=== PATIENT | male | born 1995 | race Caucasian/White ===

== ENCOUNTER 2024-01-03 16:49 | Emergency (ER) | payer BC, SELFPAY ==
[2024-01-03 16:52] VITALS: BP 170/95
[2024-01-03 17:10] LABS: % Basophils 0.6 % (0-2); % Eosinophils 1.8 % (0-6); % Immature Granulocytes 0.1 % (0-0.5); % Lymphocytes 35.3 % (20.5-51.1); % Monocytes 7.3 % (1.7-9.3); % Neutrophils 54.9 % (42.2-75.2); Absolute Eosinophils 0.1 10^3/uL (0-0.7); Absolute Lymphocytes 2.4 10^3/uL (1.2-3.4); Absolute Monocytes 0.5 10^3/uL (0.1-0.6); Absolute Neutrophils 3.7 10^3/uL (1.4-6.5); Hematocrit 44.9 % (39.0-52.0); Hemoglobin 15.5 g/dL (13.0-18.0); Mean Corp Hgb Conc. 34.5 g/dL (33.0-37.0); Mean Corpuscular Hgb 28.4 pg (27.0-31.0); Mean Corpuscular Volume 82.2 fL (80.0-94.0); Mean Platelet Volume 10.1 fL (7.4-10.4); Nucleated Red Blood Cells % 0 % (-); Platelet Count 255 10^3/uL (130-400); Red Blood Cell Count 5.46 10^6/uL (4.70-6.10); Red Cell Dist. Width 12.5 % (11.5-14.5); White Blood Cell Count 6.8 10^3/uL (4.8-10.8)
[2024-01-03 17:29] LABS: ALT (SGPT) 35 U/L (0-50); AST (SGOT) 32 U/L (17-59); Albumin 5.2 g/dl (3.5-5.0); Alkaline Phosphatase 62 U/L (38-126); Blood Urea Nitrogen 13 mg/dl (9-20); Calcium 9.9 mg/dl (8.4-10.2); Carbon Dioxide 27 mmol/L (22-30); Chloride 101 mmol/L (98-107); Glucose 113 mg/dl (70-99); Potassium 3.9 mmol/L (3.5-5.1); Sodium 137 mmol/L (135-145); Total Bilirubin 0.5 mg/dl (0.2-1.3); Total Protein 8.4 g/dl (6.3-8.2); eGFR > 60.00
[2024-01-03 17:35] LABS: Troponin I < 0.012 ng/ml
--- NOTE | 2024-01-03 18:20 | ED.GENMED ---
History of Present Illness
General
Chief Complaint: Chest Pain
Source: patient
Exam Limitations: none
Time Seen by Provider: 01/03/24 17:51
Nursing documentation reviewed up to this point in time: agreed with
Travel History
Have you had any contact with someone who has COVID-19?: No
Do you have any symptoms of coronavirus? Fever > 100 degrees, chills, cough, shortness of breath, sore throat, loss of taste or smell, muscle aches, or headache?: No
History of Present Illness
History of Present Illness:
28-year-old male with no chronic medical issues presents to the emergency room for evaluation of chest pain. Patient reports onset of symptoms a few weeks ago�she says that over the past 2 or 3 weeks he has been having pain mostly at nighttime he
describes a sharp left-sided pain. He says that initially he was not having symptoms during the daytime but over the past 3 to 4 days he has noticed intermittent pains during the day as well. He says that since about 3 PM he has had some constant
pain in the left side of his chest and he decided to come to the emergency room for assessment. He denies any exacerbating or relieving factors�no exertional symptoms. He has had some mild associated shortness of breath over the past few days. He
has not had any cough or fever, chills, URI type symptoms. He has not noticed any swelling or pain in his legs. He has not noticed any abdominal pain, nausea, vomiting, diaphoresis. He denies having had similar symptoms in the past. He says he
did have a recent trip to [place] (flew, 2-hour flight, returned home 3 days ago) and was carrying his young child around which could be contributing to his chest pain. He denies any personal history of heart issues; only needs known family
history of heart issues was in his great grandfather. No personal history of DVT/PE. He denies smoking, alcohol, drug use.
Review of Systems
Review of Systems
All Other Systems: ROS reviewed and negative except as documented in HPI and ROS
Constitutional: Reports fatigue; Denies fever or chills
EENT: Denies sore throat or runny nose
Respiratory: Reports trouble breathing; Denies cough
Cardiac: Reports chest pain and palpitations; Denies diaphoresis or syncope
ABD/GI: Denies abdominal pain, nausea, vomiting or diarrhea
: Denies flank pain
Musculoskeletal: Denies edema, neck pain or back pain
Neurological: Denies dizzy, headache, weakness or numbness
Phy Exam
Physical Exam
Physical Exam:
General: Awake, alert, oriented x3; no acute distress
Head: Normocephalic, atraumatic
Eyes: Conjunctiva normal, EOMI, sclera anicteric
Throat: Airway intact, handling secretions
Neck: Trachea midline, supple without meningismus
Lungs: Clear to auscultation bilaterally, no wheezing, rales, rhonchi
Heart: Regular rate and rhythm, no murmurs, gallops, or rubs
Abd: Soft, non distended, nontender
Neuro: Cranial nerves grossly intact, speech fluid
Skin: no rash
Extremities: No edema in extremities, equal pulses in all extremities
Scores
Heart Failure Risk
Heart Failure Risk Score: Not Applicable
Heart Score for Chest Pain Patients
STEMI patient?: No
History: Slightly or Non-Suspicious
ECG: Normal
Age: </= 45 years
Risk Factors: No Risk Factors
Troponin: </= Normal Limit
Heart Score for Chest Pain Patients: 0
Heart Score Risk: 2.5% MACE over next 6 weeks
PE Wells Score
Symptoms of DVT: No
No alternative diagnosis better explains the illness: No
Tachycardia with pulse > 100: No
Immobilization (>=3 days) or surgery within previous 4 weeks: No
Prior history of DVT or pulmonary embolism: No
Presence of hemoptysis: No
Presence of malignancy: No
Pulmonary Embolism Risk Score: 0
Probability of PE: Pt is low risk
Withdrawal Assessment of Alcohol
Withdrawal Assessment Completed?: Not applicable
Course
Orders/Labs/Results
Orders:
Orders
01/03/24 16:54
EKG [Electrocardiogram (*1)] Urgent
Reason for Study: Chest Pain
01/03/24 16:55
EKG- Treatment ONCE
01/03/24 17:02
Complete Blood Count/With Diff Urgent
Comprehensive Metabolic Panel Urgent
Monotest Urgent
Comment: ADD ON
Troponin I Urgent
01/03/24 18:20
CR Chest - 2 Views Urgent
Comment:
Reason For Exam: chest pain
01/03/24 18:23
Add On- LAB Urgent
Tests Added?: monotest
01/03/24 18:42
COVID-19 Antigen Urgent
Source: Nasal Swab
D-Dimer Urgent
Influenza A+B Rapid Molecular Urgent
[facility] Source: Nasal Swab
Specimen Description:
Abnormal Lab Results
01/03/24
17:02
Glucose 113 H mg/dl
(70-99)
Total Protein 8.4 H g/dl
(6.3-8.2)
Albumin 5.2 H g/dl
(3.5-5.0)
01/03/24 17:02
01/03/24 17:02
Vital Signs
Initial and Last Documented VS:
Initial Vital Signs
Temp Pulse Resp BP Pulse Ox
36.9 C 65 18 170/95 100
01/03/24 16:52 01/03/24 16:52 01/03/24 16:52 01/03/24 16:52 01/03/24 16:52
Last Documented Vital Signs
Temp Pulse Resp BP Pulse Ox
36.9 C 65 18 170/95 100
01/03/24 16:52 01/03/24 16:52 01/03/24 16:52 01/03/24 16:52 01/03/24 16:52
MDM/Problems Addressed
Differential Diagnosis Includes:
Pericarditis, costochondritis, pneumothorax, anxiety, GERD; less likely ACS or pulmonary embolism based on history; much less likely aortic dissection based on history and exam
MDM/Problems Addressed:
28-year-old male presents for evaluation of chest pain�mostly at nighttime for the past 2 or 3 weeks over the past few days has been happening during the day he says he has had constant symptoms for the past few hours. No exertional symptoms. EKG
shows no STEMI. Hypertensive but otherwise normal vitals. Physical exam as above. Plan to place an IV check labs including CBC and a CMP, troponin, D-dimer. Check a chest x-ray. Monitor closely reassess after the above.
Initial labs reviewed: CBC unremarkable, CMP no clinically significant abnormalities. Troponin undetectable and with constant symptoms for hours today this is sufficient to rule out acute PR. Awaiting results of D-dimer, chest x-ray.
D-dimer negative. Chest x-ray reviewed by me no acute pathology. Patient's blood pressure improved, remains well-appearing. Monitor could be some costochondritis causing chest pain related to caring with him travel [place]. Could also be
some GERD as it did start out a bit worse at night. I think it would be reasonable to trial a PPI for the next 2 weeks and have patient take Tylenol as needed. Will have him follow-up with his primary doctor and refer to cardiology as well. He
feels comfortable with this plan. Spoke to him about return precautions and all questions answered.
Acute Exacerbation and/or Progression of Chronic Illness:
Acutely hypertensive
Acute Exacerbation and/or Progression of Chronic Illness: HTN
*Radiology
Radiology exam reviewed: preliminary read by ED provider and radiology read reviewed
*Pulse Oximetry
Patient hypoxic: no
*EKG
Interpreted by ED Provider?: Yes
Heart Rate: 67
Rate: normal
Rhythm: sinus
[place]: normal axis
Interval: normal interval
QRS Pattern: normal QRS
Ischemia: no ischemia
*Critical Care Note
Total Time (30-74mins, 75-104mins- exclusive of procedures): Not Applicable
Data Reviewed
Review of Other/Old Records Reveals: Labs and Records
Source: patient and records
ED Attending Note
-
Portions of this chart may have been created with voice recognition software.� Occasional wrong word or��sound alike� substitutions may have occurred due to the inherent limitations of voice recognition software.
Discharge Plan
Departure
Patient Disposition: Home (Routine Discharge)
Date of Disposition: 01/03/24
Time of Disposition: 19:29
Patient with high blood pressure during this ER visit?: Yes
Discharge Problem:
Chest pain, Hypertension
Instructions: Chest Pain CBC Follow Up, BLOOD PRESSURE
Prescriptions:
New
pantoprazole 40 mg tablet,delayed release (DR/EC)
40 mg PO DAILY Qty: 30 0RF
Referrals:
Rafita Whittington MD [Active] - Call in 1-3 days for appt
Hugo Sterling DO [Family Provider] - Follow up in 5-7 days
Activity Restrictions/Additional Instructions:
Thank you for visiting the Emergency Department at [facility].
1. Please schedule a follow up appointment as directed. Call first thing tomorrow morning to make an appointment.
2. If indicated, please take your medications as instructed and indicated on discharge paperwork.
3. If any of your symptoms do not improve, or persist, or become more severe within 6-12 hours, please return to the emergency department for further care.
4. Please return to the emergency department if you develop a headache, neck pain/stiffness, fever greater than 100.4F, chest pain, shortness of breath, persistent nausea, vomiting, slurred speech, difficulty walking, numbness/tingling, weakness,
signs of infection or any other symptoms that are worrisome to you.
Please call [phone] if you have any questions.
Interventions
Interventions:
*Risk Screen - Suicide Last Done: 01/03/24 16:52
*General Assessment Last Done: 01/03/24 16:52
*Neglect/Abuse Screening Last Done: 01/03/24 16:52
*ED COVID-19 Vaccine History Last Done: 01/03/24 16:52
ED- Cardiac Assessment Last Done: 01/03/24 18:40
Discharge Date and Time
Print Language: YORUBA
[2024-01-03 19:02] LABS: D-Dimer < 0.27 ug/mlFEU (0.00-0.50)
[2024-01-03 19:05] LABS: Monotest Negative (Negative)
[2024-01-03 19:13] LABS: COVID-19 Antigen Negative (Negative)
[2024-01-03 19:54] VITALS: BP 139/93
== END 2024-01-03 19:55 | disposition home or self-care (01) ==
LOC: EMR 16:49
PROVIDERS: EMERGENCY PHYSICIAN Emergency Medicine; FAMILY PHYSICIAN Family Medicine
DX: R07.89 Other chest pain (principal); I10 Essential (primary) hypertension
CPT/HCPCS: 99283; 71046; 80053; 84484; 85025; 85379; 86308; 87502; 87811; 93005

== ENCOUNTER → 2024-02-06 07:27 | Outpatient (REF) | payer BC, SELFPAY | LOC: RCS 07:27 | PROVIDERS: ATTENDING PHYSICIAN Internal Medicine Cardiovascular Disease; FAMILY PHYSICIAN Family Medicine | DX: R07.89 Other chest pain (principal) | CPT/HCPCS: 93017 ==

== ENCOUNTER → 2024-03-14 13:02 | Outpatient (REF) | payer BC, SELFPAY | LOC: RCS 13:02 | PROVIDERS: ATTENDING PHYSICIAN Internal Medicine Cardiovascular Disease; FAMILY PHYSICIAN Family Medicine | DX: R07.89 Other chest pain (principal) | CPT/HCPCS: 93306 ==